=== PATIENT | male | born 1985 ===

== ENCOUNTER 2024-01-30 12:07 | Emergency (ER) | payer OTHER, SELFPAY ==
--- NOTE | 2024-01-30 12:54 | DI.RAD.S_ITS ---
PROCEDURE: XR TIBIA FIBULA LT 2V INDICATIONS: left leg wound TECHNIQUE: 2 views of the tibia and fibula were acquired. COMPARISON: None. FINDINGS: Bones: No fractures or dislocations. No suspicious bony lesions. Degenerative changes are seen, including involving the tibiotalar joint. Soft tissues: No significant soft tissue abnormality is seen. IMPRESSION: No significant plain film abnormality is seen. Dictated by: Maciej Willett M.D. on 01/30/2024 at 12:36 Approved by: Maciej Willett M.D. on 01/30/2024 at 12:37
--- NOTE | 2024-01-30 17:49 | PC.NURSE ---
[facility] Downtime 01/29/24 ~1999= see paper downtime documentation
== END 2024-01-30 15:05 | disposition home or self-care (01) ==
PROVIDERS: Emergency Provider Emergency Medicine
DX: S81.812A Laceration without foreign body, left lower leg, initial encounter (principal); W26.8XXA Contact with other sharp object(s), not elsewhere classified, initial encounter
CPT/HCPCS: 12002; 73590; 99283